=== PATIENT | female | born 1985 | race Caucasian/White ===

== ENCOUNTER → 2016-07-24 | Outpatient (CLI) | payer OTHER | LOC: US 10:14 | DX: E03.9 Hypothyroidism, unspecified (principal) | CPT/HCPCS: 76536 ==

== ENCOUNTER → 2020-11-18 | Outpatient (CLI) | payer OTHER ==
[~2020-11-18] MED LIST: NORCO 5-325 TA1 EACH PO; OMEPRAZOLE40 MG PO
== END ==
LOC: MAMO 10-25 14:30
DX: Z12.31 Encounter for screening mammogram for malignant neoplasm of breast (principal); Z80.3 Family history of malignant neoplasm of breast
CPT/HCPCS: 77066; G0279

== ENCOUNTER → 2020-12-06 | Outpatient (CLI) | payer OTHER | LOC: US 13:28 | DX: R92.8 Other abnormal and inconclusive findings on diagnostic imaging of breast (principal); N63.13 Unspecified lump in the right breast, lower outer quadrant | CPT/HCPCS: 76641-LT; 76641-RT ==

== ENCOUNTER → 2021-05-30 | Outpatient (CLI) | payer OTHER ==
[2021-05-30 14:24] LABS: HEMOGLOBIN 14.3 gm/dl (12.3-15.3); RED BLOOD COUNT 4.63 M/UL (4.00-5.10); WHITE BLOOD COUNT 7.2 K/UL (4.5-11.0)
[2021-05-30 14:49] LABS: BUN/CREATININE RATIO 10 (0-10)
== END ==
LOC: LAB 13:55
PROVIDERS: Nurse Practitioner Family
DX: Z13.9 Encounter for screening, unspecified (principal); E03.9 Hypothyroidism, unspecified
CPT/HCPCS: 36415; 80053; 80061; 82607; 82746; 83036; 83540; 83550; 83690; 84439; 84443; 85025

== ENCOUNTER → 2021-06-27 | Outpatient (CLI) | payer OTHER | LOC: RAD 15:08 | DX: M54.50 Low back pain, unspecified (principal); M54.2 Cervicalgia; M41.9 Scoliosis, unspecified | CPT/HCPCS: 72040; 72072; 72110 ==

== ENCOUNTER → 2021-08-25 | Outpatient (CLI) | payer OTHER | LOC: MAMO 07-07 14:00 | DX: R92.8 Other abnormal and inconclusive findings on diagnostic imaging of breast (principal) | CPT/HCPCS: 77065; G0279 ==